=== PATIENT | male | born 1995 | race Caucasian/White ===

== ENCOUNTER 2016-10-21 20:46 | Emergency (ER) | payer OTHER ==
[~2016-10-21] VITALS: Ht 175.3 cm; Wt 76.8 kg
[2016-10-21 20:46] VITALS: BP 150/71
[2016-10-21] MEDS ORDERED: CYCL10TA PO (21:40)
[2016-10-21] MEDS ORDERED: NAPR500T PO (21:40)
[2016-10-21] MEDS ORDERED: NORCO 5/325MG TABLET (BULK FOR ED) PO ONE (21:45)
[2016-10-21] MEDS ORDERED: CYCLOBENZAPRINE 10 MG TAB PO ONE (21:45)
== END 2016-10-21 22:01 | disposition home or self-care (01) ==
LOC: M ED 20:46
DX: S29.012A Strain of muscle and tendon of back wall of thorax, initial encounter (principal); Z72.0 Tobacco use; X50.0XXA Overexertion from strenuous movement or load, initial encounter; Y92.89 Other specified places as the place of occurrence of the external cause; Y93.89 Activity, other specified; Y99.9 Unspecified external cause status

== ENCOUNTER 2017-02-01 08:45 | Emergency (ER) | payer OTHER ==
[~2017-02-01] VITALS: Ht 175.3 cm; Wt 75.0 kg
[2017-02-01 08:45] VITALS: BP 146/70
[~2017-02-01 08:45] MED LIST: CYCL10TA PO; NAPR500T PO
[2017-02-01] MEDS ORDERED: LIDOCAINE PATCH TOP (08:56)
[2017-02-01] MEDS ORDERED: KETOROLAC 60 MG/2 ML VIAL (J1885) IM ONE (09:30)
[2017-02-01] MEDS ORDERED: CYCL10TA PO (10:10)
[2017-02-01] MEDS ORDERED: DICL75TA PO (10:10)
== END 2017-02-01 10:37 | disposition home or self-care (01) ==
LOC: M ED 08:45
DX: S29.012A Strain of muscle and tendon of back wall of thorax, initial encounter (principal); X50.0XXA Overexertion from strenuous movement or load, initial encounter; Y92.89 Other specified places as the place of occurrence of the external cause; Y93.89 Activity, other specified; Y99.8 Other external cause status; F17.290 Nicotine dependence, other tobacco product, uncomplicated
CPT/HCPCS: 96372; 99282; J1885